=== PATIENT | male | born 1955 | race American Indian/Alaskan Native ===

== ENCOUNTER 2021-02-09 14:30 | Emergency (ER) | payer MEDICARE ==
[2021-02-09] MEDS ORDERED: SODIUM CHLORIDE 0.9% 1000 ML IV SOLN IV ONE (14:58)
[2021-02-09] MEDS ORDERED: CEFEPIME/NS 2 GM/100 ML 2 GM/100 ML BAG IV ONE (14:58)
[2021-02-09] MEDS ORDERED: ACETAMINOPHEN 325 MG TAB PO PRN (14:58)
[2021-02-09 15:22] LABS: Hematocrit 37.8 % (30.3-42.9); Hemoglobin 11.6 gm/dl (10.1-14.3); Mean Corpuscular HGB Conc 31 % (30-34); Mean Corpuscular Volume 87 fl (79-97); Platelet Count 131 K/mm3 (140-440); Red Blood Count 4.34 M/mm3 (3.65-5.03); Red Cell Distribution Width 14.3 % (13.2-15.2)
[2021-02-09 15:29] LABS: ABG Base Excess -11.6 mmol/L (-2.0-3.0); ABG HCO3 12.7 mmol/L (20.0-26.0); ABG Methemoglobin 0.7 % (0.0-1.5); ABG Oxygen Saturation 94.5 % (95.0-99.0); ABG PH 7.325 pH Units (7.350-7.450); ABG PO2 72.7 mm Hg (80.0-90.0)
--- NOTE | 2021-02-09 15:31 | Emergency Department Report ---
ED General Adult HPI - General Chief complaint: Adult Asthma Stated complaint: POSS KIDNEY STONE Time Seen by Provider: 02/09/21 14:51 Source: patient Mode of arrival: Ambulatory Limitations: No Limitations - History of Present Illness Initial comments: The patient presents to the emergency department with a chief complaint of left- sided flank pain. Patient states he was diagnosed with a 1 cm kidney stone yesterday was discharged from the hospital at [facility]. On arrival the patient is tachycardic with O2 saturations 89% on room air. Patient states that he began to feel bad on Monday and is progressively getting worse. Complains of of fatigue and weakness. Patient denies shortness of breath, chest pain but does endorse left-sided flank pain as previously stated. -: Gradual Location: abdomen Radiation: non-radiation Severity scale (0 -10): 7 Quality: aching Consistency: constant Improves with: none Worsens with: none Associated Symptoms: denies other symptoms Treatments Prior to Arrival: none - Related Data Allergies Allergy/AdvReac Type Severity Reaction Status Date / Time No Known Allergies Allergy Unverified 02/09/21 14:39 ED Review of Systems ROS: Stated complaint: POSS KIDNEY STONE Other details as noted in HPI Comment: All other systems reviewed and negative Constitutional: denies: chills, fever Eyes: denies: eye pain, eye discharge, vision change ENT: denies: ear pain, throat pain Respiratory: denies: cough, shortness of breath, wheezing Cardiovascular: denies: chest pain, palpitations Endocrine: no symptoms reported Gastrointestinal: denies: abdominal pain, nausea, diarrhea Musculoskeletal: denies: back pain, joint swelling, arthralgia Skin: denies: rash, lesions Neurological: denies: headache, weakness, paresthesias Psychiatric: denies: anxiety, depression Hematological/Lymphatic: denies: easy bleeding, easy bruising ED Physical Exam - General Limitations: No Limitations General appearance: alert, in no apparent distress - Head Head exam: Present: atraumatic, normocephalic - Eye Eye exam: Present: normal appearance, PERRL, EOMI - ENT ENT exam: Present: mucous membranes moist - Neck Neck exam: Present: normal inspection - Respiratory Respiratory exam: Present: normal lung sounds bilaterally. Absent: respiratory distress - Cardiovascular Cardiovascular Exam: Present: normal rhythm, tachycardia. Absent: systolic murmur, diastolic murmur, rubs, gallop - GI/Abdominal GI/Abdominal exam: Present: soft, normal bowel sounds. Absent: distended, tenderness - Extremities Exam Extremities exam: Present: normal inspection - Back Exam Back exam: Present: normal inspection - Neurological Exam Neurological exam: Present: alert, oriented X3, CN II-XII intact. Absent: motor sensory deficit - Psychiatric Psychiatric exam: Present: normal affect, normal mood - Skin Skin exam: Present: warm, dry, intact, normal color. Absent: rash ED Course Vital Signs 02/09/21 02/09/21 02/09/21 14:36 14:38 14:54 Temperature 99.6 F Pulse Rate 136 H 129 H Respiratory 31 H Rate Blood Pressure 79/47 80/46 Blood Pressure [Right] O2 Sat by Pulse 94 98 Oximetry 02/09/21 02/09/21 02/09/21 15:00 15:16 15:30 Temperature Pulse Rate 128 H 129 H 128 H Respiratory 29 H 30 H 31 H Rate Blood Pressure 68/43 78/51 72/40 Blood Pressure [Right] O2 Sat by Pulse 97 96 97 Oximetry 02/09/21 02/09/21 02/09/21 15:39 15:46 16:04 Temperature Pulse Rate 127 H 132 H Respiratory 30 H 26 H Rate Blood Pressure 59/28 Blood Pressure [Right] O2 Sat by Pulse 98 98 98 Oximetry 02/09/21 02/09/21 02/09/21 16:16 16:30 16:46 Temperature Pulse Rate 130 H 131 H 130 H Respiratory 30 H 28 H 34 H Rate Blood Pressure 58/38 135/96 Blood Pressure [Right] O2 Sat by Pulse 96 96 94 Oximetry 02/09/21 02/09/21 02/09/21 17:00 17:16 17:30 Temperature Pulse Rate 129 H 131 H 132 H Respiratory 24 18 32 H Rate Blood Pressure 53/32 67/47 Blood Pressure [Right] O2 Sat by Pulse 98 100 Oximetry 02/09/21 02/09/21 02/09/21 17:46 18:00 18:05 Temperature Pulse Rate 137 H 134 H 132 H Respiratory 33 H 32 H 38 H Rate Blood Pressure 67/47 67/47 Blood Pressure [Right] O2 Sat by Pulse 100 100 100 Oximetry 02/09/21 02/09/21 19:15 19:42 Temperature 99.3 F Pulse Rate 122 H 119 H Respiratory 27 H 34 H Rate Blood Pressure 68/44 Blood Pressure 70/46 [Right] O2 Sat by Pulse 98 98 Oximetry - Central Line Placement Right IJ Consent Obtained: verbal consent Time Out Performed: Yes Patient Placed on Monitor/Pulse Ox: Yes Prep: mask, gown, gloves Central Line Prep: Chlorhexidine scrub Local Anesthesia Used: Lidocaine 1% Ultrasound Used for Placement: Yes Central Line Lumen Inserted: triple Reason for Insertion: Volume Resuscitation Bloods Obtained for Lab: Yes Central Line Position: good blood return, all ports aspirated, flus, sutured in place with 2-0 Dressing Applied: Tegaderm Post Procedure X-Ray: tip of catheter in good p Patient Tolerated Procedure: well Complications: none ED Medical Decision Making - Lab Data Result diagrams: 02/09/21 15:05 02/09/21 15:05 Lab Results 02/09/21 02/09/21 02/09/21 Range/Units 13:20 15:05 15:05 WBC 13.7 H (4.5-11.0) K/mm3 RBC 4.34 (3.65-5.03) M/mm3 Hgb 11.6 (10.1-14.3) gm/dl Hct 37.8 (30.3-42.9) % MCV 87 (79-97) fl MCH 27 L (28-32) pg MCHC 31 (30-34) % RDW 14.3 (13.2-15.2) % Plt Count 131 L (140-440) K/mm3 Add Manual Diff Complete Total Counted 100 Seg Neutrophils % Airline Lounge Receptionist Seg Neuts % (Manual) 78.0 H (40.0-70.0) % Band Neutrophils % 15.0 % Lymphocytes % (Manual) 3.0 L (13.4-35.0) % Monocytes % (Manual) 2.0 (0.0-7.3) % Eosinophils % (Manual) 1.0 (0.0-4.3) % Basophils % (Manual) 1.0 (0.0-1.8) % Nucleated RBC % Not Reportable Seg Neutrophils # Man 10.7 H (1.8-7.7) K/mm3 Band Neutrophils # 2.1 K/mm3 Lymphocytes # (Manual) 0.4 L (1.2-5.4) K/mm3 Abs React Lymphs (Man) 0.0 K/mm3 Monocytes # (Manual) 0.3 (0.0-0.8) K/mm3 Eosinophils # (Manual) 0.1 (0.0-0.4) K/mm3 Basophils # (Manual) 0.1 (0.0-0.1) K/mm3 Metamyelocytes # 0.0 K/mm3 Myelocytes # 0.0 K/mm3 Promyelocytes # 0.0 K/mm3 Blast Cells # 0.0 K/mm3 WBC Morphology Not Reportable Hypersegmented Neuts Few Hyposegmented Neuts Not Reportable Hypogranular Neuts Not Reportable Smudge Cells Not Reportable Toxic Granulation Not Reportable Toxic Vacuolation Few Dohle Bodies 1+ Pelger-Huet Anomaly Not Reportable Sg Rods Not Reportable Platelet Estimate Consistent w auto Clumped Platelets Rare Plt Clumps, EDTA Not Reportable Large Platelets Not Reportable Giant Platelets Rare Platelet Satelliting Not Reportable Plt Morphology Comment Not Reportable RBC Morphology Normal Dimorphic RBCs Not Reportable Polychromasia Not Reportable Hypochromasia Not Reportable Poikilocytosis Not Reportable Anisocytosis Not Reportable Microcytosis Not Reportable Macrocytosis Not Reportable Spherocytes Not Reportable Pappenheimer Bodies Not Reportable Sickle Cells Not Reportable Target Cells Not Reportable Tear Drop Cells Not Reportable Ovalocytes Not Reportable Helmet Cells Not Reportable Zimmerman-Keenes Bodies Not Reportable Howard Rings Not Reportable [place] Cells Not Reportable Bite Cells Not Reportable Crenated Cell Not Reportable Elliptocytes Not Reportable Acanthocytes (Spur) Not Reportable Rouleaux Not Reportable Hemoglobin C Crystals Not Reportable Schistocytes Not Reportable Malaria parasites Not Reportable Giovani Bodies Not Reportable Hem Pathologist Commnt No APTT 39.5 H (24.2-36.6) Sec. ABG pH 7.325 L (7.350-7.450) pH Units ABG pCO2 25.0 mm Hg ABG pO2 72.7 L (80.0-90.0) mm Hg ABG HCO3 12.7 L (20.0-26.0) mmol/L ABG O2 Saturation 94.5 L (95.0-99.0) % ABG O2 Content 15.1 (0.0-44) ABG Base Excess -11.6 L (-2.0-3.0) mmol/L ABG Hemoglobin 11.6 L (12.0-16.0) gm/dl ABG Carboxyhemoglobin 1.7 (0.0-5.0) % ABG Methemoglobin 0.7 (0.0-1.5) % Oxyhemoglobin 92.3 L (95.0-99.0) % FiO2 21 % Sodium (137-145) mmol/L Potassium (3.6-5.0) mmol/L Chloride (98-107) mmol/L Carbon Dioxide (22-30) mmol/L Anion Gap mmol/L BUN (7-17) mg/dL Creatinine (0.6-1.2) mg/dL Estimated GFR ml/min BUN/Creatinine Ratio % Glucose (65-100) mg/dL Lactic Acid (0.7-2.0) mmol/L Calcium (8.4-10.2) mg/dL Magnesium (1.7-2.3) mg/dL Total Bilirubin (0.1-1.2) mg/dL AST (5-40) units/L ALT (7-56) units/L Alkaline Phosphatase (35-129) units/L Troponin T (0.00-0.029) ng/mL NT-Pro-B Natriuret Pep (0-900) pg/mL Total Protein (6.3-8.2) g/dL Albumin (3.9-5) g/dL Albumin/Globulin Ratio % 02/09/21 02/09/21 02/09/21 Range/Units 15:05 15:05 15:05 WBC (4.5-11.0) K/mm3 RBC (3.65-5.03) M/mm3 Hgb (10.1-14.3) gm/dl Hct (30.3-42.9) % MCV (79-97) fl MCH (28-32) pg MCHC (30-34) % RDW (13.2-15.2) % Plt Count (140-440) K/mm3 Add Manual Diff Total Counted Seg Neutrophils % Seg Neuts % (Manual) (40.0-70.0) % Band Neutrophils % % Lymphocytes % (Manual) (13.4-35.0) % Monocytes % (Manual) (0.0-7.3) % Eosinophils % (Manual) (0.0-4.3) % Basophils % (Manual) (0.0-1.8) % Nucleated RBC % Seg Neutrophils # Man (1.8-7.7) K/mm3 Band Neutrophils # K/mm3 Lymphocytes # (Manual) (1.2-5.4) K/mm3 Abs React Lymphs (Man) K/mm3 Monocytes # (Manual) (0.0-0.8) K/mm3 Eosinophils # (Manual) (0.0-0.4) K/mm3 Basophils # (Manual) (0.0-0.1) K/mm3 Metamyelocytes # K/mm3 Myelocytes # K/mm3 Promyelocytes # K/mm3 Blast Cells # K/mm3 WBC Morphology Hypersegmented Neuts Hyposegmented Neuts Hypogranular Neuts Smudge Cells Toxic Granulation Toxic Vacuolation Dohle Bodies Pelger-Huet Anomaly Sg Rods Platelet Estimate Clumped Platelets Plt Clumps, EDTA Large Platelets Giant Platelets Platelet Satelliting Plt Morphology Comment RBC Morphology Dimorphic RBCs Polychromasia Hypochromasia Poikilocytosis Anisocytosis Microcytosis Macrocytosis Spherocytes Pappenheimer Bodies Sickle Cells Target Cells Tear Drop Cells Ovalocytes Helmet Cells Zimmerman-Keenes Bodies Howard Rings Lew Cells Bite Cells Crenated Cell Elliptocytes Acanthocytes (Spur) Rouleaux Hemoglobin C Crystals Schistocytes Malaria parasites Giovani Bodies Hem Pathologist Commnt APTT (24.2-36.6) Sec. ABG pH (7.350-7.450) pH Units ABG pCO2 mm Hg ABG pO2 (80.0-90.0) mm Hg ABG HCO3 (20.0-26.0) mmol/L ABG O2 Saturation (95.0-99.0) % ABG O2 Content (0.0-44) ABG Base Excess (-2.0-3.0) mmol/L ABG Hemoglobin (12.0-16.0) gm/dl ABG Carboxyhemoglobin (0.0-5.0) % ABG Methemoglobin (0.0-1.5) % Oxyhemoglobin (95.0-99.0) % FiO2 % Sodium 132 L (137-145) mmol/L Potassium 3.9 (3.6-5.0) mmol/L Chloride 91.2 L (98-107) mmol/L Carbon Dioxide 13 L (22-30) mmol/L Anion Gap 32 mmol/L BUN 52 H (7-17) mg/dL Creatinine 4.1 H (0.6-1.2) mg/dL Estimated GFR 11 ml/min BUN/Creatinine Ratio 13 % Glucose 133 H (65-100) mg/dL Lactic Acid 12.00 H* (0.7-2.0) mmol/L Calcium 9.2 (8.4-10.2) mg/dL Magnesium 1.20 L (1.7-2.3) mg/dL Total Bilirubin 0.50 (0.1-1.2) mg/dL AST 33 (5-40) units/L ALT 47 (7-56) units/L Alkaline Phosphatase 499 H (35-129) units/L Troponin T 0.041 H (0.00-0.029) ng/mL NT-Pro-B Natriuret Pep 1513 H (0-900) pg/mL Total Protein 6.9 (6.3-8.2) g/dL Albumin 3.3 L (3.9-5) g/dL Albumin/Globulin Ratio 0.9 % 02/09/21 02/09/21 Range/Units 18:02 20:17 WBC (4.5-11.0) K/mm3 RBC (3.65-5.03) M/mm3 Hgb (10.1-14.3) gm/dl Hct (30.3-42.9) % MCV (79-97) fl MCH (28-32) pg MCHC (30-34) % RDW (13.2-15.2) % Plt Count (140-440) K/mm3 Add Manual Diff Total Counted Seg Neutrophils % Seg Neuts % (Manual) (40.0-70.0) % Band Neutrophils % % Lymphocytes % (Manual) (13.4-35.0) % Monocytes % (Manual) (0.0-7.3) % Eosinophils % (Manual) (0.0-4.3) % Basophils % (Manual) (0.0-1.8) % Nucleated RBC % Seg Neutrophils # Man (1.8-7.7) K/mm3 Band Neutrophils # K/mm3 Lymphocytes # (Manual) (1.2-5.4) K/mm3 Abs React Lymphs (Man) K/mm3 Monocytes # (Manual) (0.0-0.8) K/mm3 Eosinophils # (Manual) (0.0-0.4) K/mm3 Basophils # (Manual) (0.0-0.1) K/mm3 Metamyelocytes # K/mm3 Myelocytes # K/mm3 Promyelocytes # K/mm3 Blast Cells # K/mm3 WBC Morphology Hypersegmented Neuts Hyposegmented Neuts Hypogranular Neuts Smudge Cells Toxic Granulation Toxic Vacuolation Dohle Bodies Pelger-Huet Anomaly Sg Rods Platelet Estimate Clumped Platelets Plt Clumps, EDTA Large Platelets Giant Platelets Platelet Satelliting Plt Morphology Comment RBC Morphology Dimorphic RBCs Polychromasia Hypochromasia Poikilocytosis Anisocytosis Microcytosis Macrocytosis Spherocytes Pappenheimer Bodies Sickle Cells Target Cells Tear Drop Cells Ovalocytes Helmet Cells Zimmerman-Keenes Bodies Howard Rings [place] Cells Bite Cells Crenated Cell Elliptocytes Acanthocytes (Spur) Rouleaux Hemoglobin C Crystals Schistocytes Malaria parasites Giovani Bodies Hem Pathologist Commnt APTT (24.2-36.6) Sec. ABG pH (7.350-7.450) pH Units ABG pCO2 mm Hg ABG pO2 (80.0-90.0) mm Hg ABG HCO3 (20.0-26.0) mmol/L ABG O2 Saturation (95.0-99.0) % ABG O2 Content (0.0-44) ABG Base Excess (-2.0-3.0) mmol/L ABG Hemoglobin (12.0-16.0) gm/dl ABG Carboxyhemoglobin (0.0-5.0) % ABG Methemoglobin (0.0-1.5) % Oxyhemoglobin (95.0-99.0) % FiO2 % Sodium (137-145) mmol/L Potassium (3.6-5.0) mmol/L Chloride (98-107) mmol/L Carbon Dioxide (22-30) mmol/L Anion Gap mmol/L BUN (7-17) mg/dL Creatinine (0.6-1.2) mg/dL Estimated GFR ml/min BUN/Creatinine Ratio % Glucose (65-100) mg/dL Lactic Acid 11.10 H* 12.10 H* (0.7-2.0) mmol/L Calcium (8.4-10.2) mg/dL Magnesium (1.7-2.3) mg/dL Total Bilirubin (0.1-1.2) mg/dL AST (5-40) units/L ALT (7-56) units/L Alkaline Phosphatase (35-129) units/L Troponin T (0.00-0.029) ng/mL NT-Pro-B Natriuret Pep (0-900) pg/mL Total Protein (6.3-8.2) g/dL Albumin (3.9-5) g/dL Albumin/Globulin Ratio % - EKG Data -: EKG Interpreted by Me EKG shows normal: sinus rhythm Rate: tachycardia - Radiology Data Radiology results: report reviewed - Medical Decision Making Upon the patient's initial evaluation sepsis protocol was initiated and 30 cc/kg IV fluids were ordered as well as IV antibiotics. Patient's blood pressure was 68/43. Patient was initially hypoxic with O2 saturation 86% on room air. Patient was placed on O2 via nasal cannula with O2 sats decreasing to 98 breaths/min. Patient was tachypneic with respiratory rate of 30 breaths/min. The patient's initial 30 cc/kg IV fluids was not completely given at approximately 3 hours into the patient's visit The patient was not able to produce urine thus a Bhatt was placed with no return of urine Ultrasound was obtained and there was less than 100 cc of urine in the bladder after receiving initial 30 cc/kg IV fluids. The patient was still hypotensive after receiving his initial sepsis bolus and another 2 L of fluid were given. After 5 L of fluid the patient's blood pressure systolically was still 71 with a MAP of 49 Patient was started on Levophed peripherally until CVL was placed. Central line placement patient pressures were continue with his map increasing to 65 The patient's troponins likely elevated secondary to cardiac demand from the septic shock Contacted [facility] for transfer spoke to [place] [facility] accepted the patient to the unit where the patient will be evaluated as well by urology in the morning Accepting physician will be Dr. Phipps Critical Care Time: Yes Critical care time in (mins) excluding proc time.: 120 Critical care attestation.: If time is entered above; I have spent that time in minutes in the direct care of this critically ill patient, excluding procedure time. ED Disposition Clinical Impression: Septic shock, Urolithiasis, Anuria, Renal failure, Pneumonia Disposition: 02 SHORT TERM HOSPITAL Is pt being admited?: No Does the pt Need Aspirin: No Condition: Critical Instructions: Kidney Stones, [id number], Bacterial Pneumonia (ED) Referrals: PAOLO SHELL MD [Primary Care Provider] - 3-5 Days Forms: Accompanied Note, Work/School Release Form(ED)
[2021-02-09 15:46] LABS: Albumin 3.3 g/dL (3.9-5); Calcium 9.2 mg/dL (8.4-10.2)
--- NOTE | 2021-02-09 16:05 | XRay Report ---
CHEST 1 VIEW INDICATION / CLINICAL INFORMATION: tachycardia. COMPARISON: None available. FINDINGS: SUPPORT DEVICES: None. HEART / MEDIASTINUM: Enlarged cardiac silhouette. LUNGS / PLEURA: Left basilar density, possibly atelectasis versus infiltrate. No pneumothorax. ADDITIONAL FINDINGS: Asymmetric elevation of the left hemidiaphragm. Suspected gas-distended stomach. IMPRESSION: Left basilar density, possibly atelectasis versus infiltrate. Asymmetric elevation of the left hemidiaphragm with suspected gas distended stomach. If abdominal brandon n is present, additional abdominal imaging would be recommended. Enlarged cardiac silhouette. Signer Name: Elder Winters MD Signed: 02/09/2021 4:00 PM Workstation Name: [id number]
--- NOTE | 2021-02-09 16:30 | Cat Scan Report ---
CT ABDOMEN AND PELVIS WITHOUT CONTRAST HISTORY: flank pain. COMPARISON: None. TECHNIQUE: CT images of the abdomen and pelvis were obtained without administration of intravenous co ntrast. All CT scans at this location are performed using CT dose reduction for ALARA by means of au tomated exposure control. FINDINGS: Limited evaluation of the lung bases shows mild left basilar atelectasis with asymmetric elevation of the left hemidiaphragm. There is an 8 mm obstructing calculus in the proximal left ureter near the ureteropelvic junction. Th ere is resultant left hydroureteronephrosis. Indeterminate hypodensity along the lateral aspect of le ft kidney is noted. This is not fully characterize on current exam and may represent a cyst. Patient is status post cholecystectomy. The liver, right kidney, spleen, pancreas, adrenal glands, an d gallbladder are unremarkable. Gastrointestinal tract shows no evidence of bowel wall thickening or pathologic distention. There are no pathologically enlarged lymph nodes. No free intraperitoneal gas. The appendix is visualized and is normal in appearance. Circumferential thickening of the urinary diana dder, possibly accentuated by the collapsed state. Osseous structures show no evidence of acute fracture or aggressive osseous destructive lesion. The lack of intravenous and oral contrast limits evaluation of solid parenchymal organs, vasculature, and gastrointestinal tract. IMPRESSION: There is an 8 mm obstructing calculus in the near the left ureteropelvic junction. There is resultant left hydroureteronephrosis. Mild left basilar atelectasis with asymmetric elevation of the left hemidiaphragm. Signer Name: Elder Winters MD Signed: 02/09/2021 4:25 PM Workstation Name: [id number]
[2021-02-09 17:24] LABS: Dohle Bodies 1+; Hypersegmented Neutrophils Few
[2021-02-09 17:25] LABS: Giant Platelets Rare; Platelet Clumps Rare; Platelet Estimate Consistent w Auto; RBC Morphology Normal; Toxic Vacuolation Few
[2021-02-09 17:28] LABS: Band Neutrophils # (Manual) 2.1 K/mm3; Total Cells Counted 100
[2021-02-09] MEDS ORDERED: SODIUM CHLORIDE 0.9% 1000 ML 1,000 ML IV ONE (18:08)
[2021-02-09] MEDS ORDERED: NORepinephrine/NS 8 MG-250 ML 8 MG/250 ML INFUS..BTL IV SCH (19:00)
[2021-02-09 19:50] VITALS: BP 70/46
[2021-02-09] MEDS ORDERED: LIDOCAINE (1%) 10 MG/1 ML VIAL 20 ML MDV INFILTRATI ONE (20:03)
[2021-02-09] MEDS ORDERED: PIPERACIL/TAZOBACTA 4.5/NS 100 4.5 GM/100 ML VIAL IV ONE (20:55)
--- NOTE | 2021-02-09 21:36 | XRay Report ---
CHEST 1 VIEW 02/09/2021 8:11 PM INDICATION / CLINICAL INFORMATION: CVL placement. COMPARISON: 02/09/2021 FINDINGS: SUPPORT DEVICES: There is a right IJ central venous catheter with the tip at the cavoatrial junction. HEART / MEDIASTINUM: Stable. LUNGS / PLEURA: Redemonstrated bibasilar opacities. No pneumothorax. ADDITIONAL FINDINGS: Partial visualization of cervical hardware. IMPRESSION: 1. Central line in expected position. Signer Name: Sharif Toth DO Signed: 02/09/2021 9:32 PM Workstation Name: [id number]
--- NOTE | 2021-02-10 09:57 | Electrocardiograph Report ---
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
== END 2021-02-09 22:55 | disposition short-term general hospital (02) ==
LOC: EDSEX → ED 14:30
DX: A41.9 Sepsis, unspecified organism (principal); R65.21 Severe sepsis with septic shock; N17.9 Acute kidney failure, unspecified; J18.9 Pneumonia, unspecified organism; N20.9 Urinary calculus, unspecified
CPT/HCPCS: 36415; 36556; 71045; 74176; 80053; 82140; 82803; 83735; 83880; 84484; 85007; 85025; 85730; 87040; 87076; 87186; 93005; 96365; 96366; 96367; 96368; 99291; 99292; J0692; J2354; J2543; J3490; J7030; Q0162